=== PATIENT | male | born 1955 | race African-American/Black ===

== ENCOUNTER → 2017-02-16 | Outpatient (CLI) | payer OTHER | LOC: HYPER 07:00 | DX: I87.333 Chronic venous hypertension (idiopathic) with ulcer and inflammation of bilateral lower extremity (principal); L97.821 Non-pressure chronic ulcer of other part of left lower leg limited to breakdown of skin; L97.321 Non-pressure chronic ulcer of left ankle limited to breakdown of skin; L97.811 Non-pressure chronic ulcer of other part of right lower leg limited to breakdown of skin; D50.9 Iron deficiency anemia, unspecified; G89.29 Other chronic pain; I10 Essential (primary) hypertension; F32.9 Major depressive disorder, single episode, unspecified; F17.200 Nicotine dependence, unspecified, uncomplicated; Z72.89 Other problems related to lifestyle ==

== ENCOUNTER → 2017-03-08 | Outpatient (CLI) | payer OTHER | LOC: HYPER 07:09 | DX: I87.333 Chronic venous hypertension (idiopathic) with ulcer and inflammation of bilateral lower extremity (principal); L97.811 Non-pressure chronic ulcer of other part of right lower leg limited to breakdown of skin; L97.821 Non-pressure chronic ulcer of other part of left lower leg limited to breakdown of skin; L97.321 Non-pressure chronic ulcer of left ankle limited to breakdown of skin; F12.90 Cannabis use, unspecified, uncomplicated; F17.200 Nicotine dependence, unspecified, uncomplicated; Z72.89 Other problems related to lifestyle ==

== ENCOUNTER → 2017-03-29 | Outpatient (CLI) | payer OTHER | LOC: HYPER 06:40 | DX: I87.333 Chronic venous hypertension (idiopathic) with ulcer and inflammation of bilateral lower extremity (principal); L97.811 Non-pressure chronic ulcer of other part of right lower leg limited to breakdown of skin; L97.821 Non-pressure chronic ulcer of other part of left lower leg limited to breakdown of skin; D50.9 Iron deficiency anemia, unspecified; G89.29 Other chronic pain; F17.200 Nicotine dependence, unspecified, uncomplicated; Z72.89 Other problems related to lifestyle ==

== ENCOUNTER → 2017-04-19 | Outpatient (CLI) | payer OTHER | LOC: HYPER 06:57 | DX: I87.333 Chronic venous hypertension (idiopathic) with ulcer and inflammation of bilateral lower extremity (principal); L97.811 Non-pressure chronic ulcer of other part of right lower leg limited to breakdown of skin; L97.321 Non-pressure chronic ulcer of left ankle limited to breakdown of skin; F17.200 Nicotine dependence, unspecified, uncomplicated; F12.90 Cannabis use, unspecified, uncomplicated; Z72.89 Other problems related to lifestyle ==

== ENCOUNTER 2017-04-23 10:07 | Inpatient (IN) | payer OTHER ==
[~2017-04-23] VITALS: Ht 188 cm; Wt 95.3 kg
--- NOTE | ~2017-04-23 | O ---
[facility] [place] [place] [address] OPERATIVE REPORT Name: TELLO LUDWIG Room #: 421-P [facility] IN .R.#: [id number] Admission: 04/23/17 Attend Phys: Jayro Santos MD Discharge: 04/29/17 Date of : 51 Report #: [id number] THIS REPORT FOR: //name// CC: [facility] physician/PCP Jayro Teixeira DATE OF SERVICE: 04/26/2017 PREOPERATIVE DIAGNOSIS: Bilateral venous stasis ulcers with necrotic skin. POSTOPERATIVE DIAGNOSIS: Bilateral venous stasis ulcers with necrotic skin. OPERATIVE PROCEDURE: Bilateral Misonix mechanical debridement of lower extremities 20 x 24 cm left lower extremity and 18 x 24 right lower extremity. SURGEON: Bk Bonilla M.D. 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 He now requires an additional dressing change with Misonix mechanical debridement of 2 mm depth of the necrotic granulation tissue. OPERATIVE PROCEDURE: The patient had thorough discussion of procedure, benefits and risks. He gave informed consent to proceed. He was brought to the operating room suite and had satisfactory induction of general endotracheal anesthesia. His feet were placed on a prop and circumferential painting with Betadine from the knee to the ankles was performed. Sterile draping was completed. The Misonix device on the power of 7 was utilized with sterile water for mechanical debridement of all of the left lower extremity and the right lower extremity wounds. The left lower extremity wounds were 20 x 24 cm in greatest dimensions. There was exuberant granulation tissue, which was removed with the mechanical debridement. The right lower extremity also had an area of 18 x 24 cm in greatest dimensions, which was also mechanically debrided with Misonix. After this was completed, Silvadene ointment mixed with 3 mg of morphine was utilized to dress the wounds. Xeroform dressings were applied. Kerlix wraps from the ankle to just below the knee on both lower extremities was performed. Jaime wrap was then placed over the Kerlix. The patient tolerated the [address] [address] OPERATIVE REPORT Name: DIONNA LUDWIGFina Room #: 421-P [facility] IN [facility].#: [id number] Admission: 04/23/17 Attend Phys: Jayro Santos MD Discharge: 04/29/17 Date of : 51 Report #: [id number] procedure well with an estimated blood loss of less than 25 mL. He returned directly to the recovery room in stable and satisfactory condition. By: [id number] Bk Bonilla MD, FACS /nt
--- NOTE | ~2017-04-23 | O ---
[facility] [place] [address] OPERATIVE REPORT Name: TELLO LUDWIG Room #: 421-P [facility] IN M.R.#: [id number] Admission: 04/23/17 Attend Phys: Jayro Santos MD Discharge: Date of : 51 Report #: [id number] THIS REPORT FOR: //name// CC: [facility] physician/PCP Jayro Teixeira DATE OF SERVICE: 04/23/2017 PREOPERATIVE DIAGNOSIS: Bilateral venous stasis ulcerations of the lower extremities with necrotic skin. POSTOPERATIVE DIAGNOSIS: Bilateral venous stasis ulcerations of the lower extremities with necrotic skin. PROCEDURE: Extensive Misonix debridement of bilateral venous stasis ulcerations of the lower extremities with debridement of necrotic skin. Area of debridement, left leg 16 x 20 cm in greatest dimensions and area of debridement, right leg 18 x 24 cm in greatest dimensions. OPERATIVE PROCEDURE: The patient presented to the Emergency Department and the Wound Care Clinic with extensive ulcerations of the lower extremities over the last 2-3 years. They have been poorly taken care of. He now has significant islands of necrotic skin of both lower extremities with significant necrosis and odor changes. This requires debridement in the operating room. The patient had a thorough discussion of the procedure, benefits and risks. He gave informed consent to proceed. He was brought to the operating room suite and had satisfactory induction of general endotracheal anesthesia. The legs were placed on an elevated board for painting with Betadine solution from the ankles to the knees. The site of the left leg extensive area with necrotic skin was 16 x 20 cm in greatest dimensions. The right leg demonstrated an area of devoid of skin and epithelium of approximately 20 x 24 cm in greatest dimensions, all between the ankle and the knees. After draping was completed, an appropriate timeout was then performed. The Misonix debridement device was utilized to mechanically debride all of the areas of the left lower extremity initially. The islands of necrotic skin were debrided and a few pieces were sent for histological evaluation. The debridement area of the left leg was approximately 18 x 24 cm in greatest dimensions. Attention was then turned to the right leg for the islands of necrotic skin, which were excised. The Misonix debridement device again mechanically debrided all of the areas of the granulation tissue devoid of skin. This comprised an area of approximately 20 x 24 cm in greatest dimensions. There was extensive circumferential areas around both extremities devoid of skin. After the debridement device was utilized over all of the necrotic skin areas and the areas devoid of epithelium, the [address] [address] OPERATIVE REPORT Name: TELLO LUDWIG Room #: 421-P [facility] IN M.R.#: [id number] Admission: 04/23/17 Attend Phys: Jayro Santos MD Discharge: Date of : 51 Report #: [id number] granulation tissue was bleeding freely. Cultures had been previously sent from the Emergency Room for the tissue and the open wounds. After cleaning with a lap tape, 3 mg of morphine mixed with 30 grams of Silvadene was applied to each leg individually. Xeroform gauze was then wrapped over the open wounds and the Silvadene with morphine. The right leg required 3 full pieces of Xeroform gauze. The left leg required 2 full pieces of Xeroform gauze and a third was split and also applied to the left leg. Each leg was then wrapped with 2 rolls of Kerlix dressing. The estimated blood loss for the entire procedure was less than 10 mL. The patient tolerated the procedure well and returned to recovery room in stable and satisfactory condition. <ELECTRONICALLY SIGNED> By: Bk Bonilla MD, FACS 04/27/17 1722 1504 1604 Bk Bonilla MD, FACS /nt
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
--- NOTE | ~2017-04-23 | EKG ---
[address] [place] [address] ELECTROCARDIOGRAM REPORT Name: VANITELLO Room #: 170-11 ADM IN M.R.#: [id number] Admission: 04/23/17 Attend Phys: Jayro Santos MD Discharge: Date of : 51 Report #: [id number] THIS REPORT FOR: //name// [facility] ED Test Date: 2017-04-23 Test Time: 12:47:21 Pat Name: TELLO LUDWIG Department: Room: 170 11 Gender: M Veneer Sorter: BIRGIT : 1955 Requested By: Miguel Gould Order Number: [id number] MD: Dalton Gupta Measurements Intervals Loyal Rate: 58 P: 54 NH: 151 QRS: 7 QRSD: 108 T: 36 QT: 460 QTc: 452 Interpretive Statements Sinus rhythm Low voltage, precordial leads Abnormal R-wave progression, early transition No previous ECG available for comparison Electronically Signed On 04-23-2017 13:35:42 CDT by Dalton Gupta [email or web address] <ELECTRONICALLY SIGNED> By: Dalton Gupta MD 04/23/17 1335 1247 1247 Dalton Gupta MD /DOMINGA
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
--- NOTE | ~2017-04-23 | S ---
[facility] [place] [address] SURGICAL PATH RPT PROCEDURE Name: VALERIE LUDWIG Room #: 421-P ADM IN M.R.#: [id number] Admission: 04/23/17 Date of : 51 Discharge: Report #: [id number] Path Case #: [id number] PATHOLOGY REPORT COLLECTION DATE: 04/23/2017 RECEIVED DATE: 04/26/2017 SUBMITTING PHYS: Dr. Bk Bonilla OTHER PHYS: Dr. Jayro Estrada SPECIMEN(S) RECEIVED: A.Left leg necrotic skin B.Right leg necrotic skin * * * * * * * * * * * * FINAL DIAGNOSIS: A. Skin, left leg necrotic skin, debridement: - Gangrenous necrosis along with fibrinoid degeneration, as well as marked acute inflammation, consistent with debridement tissue. - No viable squamous epithelium present. B. Skin, right leg necrotic skin, debridement: - Gangrenous necrosis along with fibrinoid degeneration, as well as marked acute inflammation, consistent with debridement tissue. - No viable squamous epithelium present. (IUV:ely; 04/27/2017) PATHOLOGIST: Jennifer Howell M.D. REPORT ELECTRONICALLY SIGNED BY: Jennifer Howell M.D. DATE/TIME: 04/27/2017 15:57 * * * * * * * * * * * * GROSS PATHOLOGY: A. The specimen is received in formalin, labeled "Valerie Ludwig and left leg necrotic skin", are several fragment of matute-white to black-brown portion of soft tissue measures 1.5 x 0.8 x 0.5 cm entirely submitted in A1. B. The specimen is received in formalin, labeled "Valerie Ludwig and right leg necrotic skin", are several fragments of matute-white to black And brown portion of soft tissue 1.0 x 0.6 x 0.3 cm in aggregate, entirely submitted in B1. (SWS; 04/26/2017) CLINICAL HISTORY: Venous static ulcer [address] [address] SURGICAL PATH RPT PROCEDURE Name: VALERIE LUDWIG Room #: 421-P ADM IN M.R.#: [id number] Admission: 04/23/17 Date of : 51 Discharge: Report #: [id number] Path Case #: [id number] INITIAL CPT CODE(S): A; 19509 B; 54318 Professional services performed by [facility] at [address], [place] [address] Technical services performed by [facility] at [address] [place] [address], [facility] [address] [address]. [facility] [address] [place] [id number] PHONE: [phone] DIRECTOR: Yassine Jones M.D. * * * END OF REPORT * * *
[2017-04-23 10:11] VITALS: BP 108/66
[2017-04-23 11:21] LABS: HEMATOCRIT 26.9 % (42.0-52.0); HEMOGLOBIN 8.5 gm/dL (14.0-18.0); MCH 26.6 pg (26.0-34.0); MCHC 31.7 g/dL (28.0-37.0); MCV 83.8 fL (80.0-100.0); PLATELET COUNT 409 thou/uL (150-400); RBC 3.21 mil/uL (4.50-6.00); RDW 21.3 % (10.5-14.5); WBC 9.5 thou/uL (4.0-11.0)
[2017-04-23 11:29] LABS: MANUAL DIFF YES
[2017-04-23 11:31] LABS: ANION GAP 13 mmol/L (7-16); BUN 22 mg/dL (7-18); CALCIUM 8.6 mg/dL (8.5-10.1); CHLORIDE 109 mmol/L (98-107); CO2 17 mmol/L (21-32); CREATININE 1.7 mg/dL (0.7-1.3); GLUCOSE 105 mg/dL (74-106); POTASSIUM 3.8 mmol/L (3.5-5.1); SODIUM 139 mmol/L (136-145)
[2017-04-23 11:36] LABS: ALBUMIN 2.6 g/dL (3.4-5.0); ALKALINE PHOSPHATASE 53 U/L (46-116); DIRECT BILIRUBIN < 0.1 mg/dL (<0.1-0.3); SGOT 14 U/L (15-37); SGPT 8 U/L (30-65); TOTAL BILIRUBIN 0.7 mg/dL (<0.1-1.0); TOTAL PROTEIN 6.9 g/dL (6.4-8.2)
[2017-04-23 12:58] LABS: ABSOLUTE NEUTROPHILS 7.7 thou/uL (1.4-8.2); TOTAL CELL COUNT 100
[2017-04-23 12:59] LABS: APTT 30.9 Seconds (24.5-32.8)
[2017-04-23 13:00] LABS: ANISOCYTOSIS 2+; OVALOCYTES FEW
[2017-04-23 13:02] LABS: MACROCYTES 1+; MICROCYTES 1+
[2017-04-23 13:07] VITALS: BP 127/64
[2017-04-23 16:30] VITALS: BP 128/66
[2017-04-23 20:03] VITALS: BP 133/71
[2017-04-24 03:00] VITALS: BP 117/63
[2017-04-24 06:25] LABS: HEMATOCRIT 26.4 % (42.0-52.0); HEMOGLOBIN 8.2 gm/dL (14.0-18.0); MCH 26.3 pg (26.0-34.0); MCHC 31.1 g/dL (28.0-37.0); MCV 84.5 fL (80.0-100.0); RBC 3.12 mil/uL (4.50-6.00); RDW 21.6 % (10.5-14.5)
[2017-04-24 06:38] LABS: CALCIUM 8.4 mg/dL (8.5-10.1); CREATININE 1.5 mg/dL (0.7-1.3)
[2017-04-24 07:42] VITALS: BP 107/68
[2017-04-24 17:08] VITALS: BP 118/74
[2017-04-24 19:47] VITALS: BP 129/67
[2017-04-25 03:44] VITALS: BP 119/75
[2017-04-25 03:55] LABS: HEMATOCRIT 26.3 % (42.0-52.0); HEMOGLOBIN 8.4 gm/dL (14.0-18.0); MCH 26.6 pg (26.0-34.0); MCHC 31.9 g/dL (28.0-37.0); MCV 83.4 fL (80.0-100.0); RBC 3.15 mil/uL (4.50-6.00); RDW 21.2 % (10.5-14.5); WBC 7.3 thou/uL (4.0-11.0)
[2017-04-25 04:03] LABS: CALCIUM 8.8 mg/dL (8.5-10.1); CREATININE 1.2 mg/dL (0.7-1.3)
[2017-04-25 07:37] VITALS: BP 113/70
[2017-04-25 16:13] VITALS: BP 127/73
[2017-04-25 20:00] VITALS: BP 120/66
[2017-04-26] VITALS (7 sets, daily range): BP systolic 95–150; BP diastolic 59–83
[2017-04-26] MEDS ORDERED: OXYCODONE HCL15 MG PO (00:49)
[2017-04-26] MEDS ORDERED: AMOXICILLIN 50500 MG PO (00:50)
[2017-04-26 09:49] LABS: HEMATOCRIT 26.4 % (42.0-52.0); HEMOGLOBIN 8.3 gm/dL (14.0-18.0); MCH 26.6 pg (26.0-34.0); MCHC 31.4 g/dL (28.0-37.0); MCV 84.5 fL (80.0-100.0); RBC 3.12 mil/uL (4.50-6.00); RDW 20.4 % (10.5-14.5); WBC 8.7 thou/uL (4.0-11.0)
[2017-04-26 10:00] LABS: CALCIUM 8.7 mg/dL (8.5-10.1); CREATININE 1.2 mg/dL (0.7-1.3); POTASSIUM 4.3 mmol/L (3.5-5.1)
[2017-04-27 03:34] VITALS: BP 104/61
[2017-04-27 06:24] LABS: HEMATOCRIT 27.5 % (42.0-52.0); HEMOGLOBIN 8.6 gm/dL (14.0-18.0); MCH 26.4 pg (26.0-34.0); MCHC 31.3 g/dL (28.0-37.0); MCV 84.4 fL (80.0-100.0); RBC 3.25 mil/uL (4.50-6.00); RDW 19.9 % (10.5-14.5); WBC 5.6 thou/uL (4.0-11.0)
[2017-04-27 06:59] LABS: CALCIUM 8.7 mg/dL (8.5-10.1); CREATININE 1.3 mg/dL (0.7-1.3); POTASSIUM 4.3 mmol/L (3.5-5.1)
[2017-04-27 09:00] VITALS: BP 111/64
[2017-04-27 15:09] VITALS: BP 124/76
[2017-04-27 20:51] VITALS: BP 132/68
[2017-04-28 03:44] VITALS: BP 115/61
[2017-04-28 07:44] VITALS: BP 100/61
[2017-04-28 16:27] VITALS: BP 105/65
[2017-04-28 19:14] VITALS: BP 118/75
[2017-04-29 03:31] VITALS: BP 119/69
[2017-04-29 07:28] VITALS: BP 117/77
[2017-04-29] MEDS ORDERED: PERCOCET 10-321 EACH PO (14:22)
[2017-04-29] MEDS ORDERED: ROCEPHIN 11 GM/1001 IV (14:22)
[2017-04-29 15:10] VITALS: BP 117/70
== END 2017-04-29 18:29 | DRG 264 ==
LOC: ER 10:07 → 4E 12:01 → EROBS 12:01 → 4E 16:40
PROVIDERS: Hospitalist; Nurse Practitioner; Surgery
PROC: 0JBN0ZZ Excision of Right Lower Leg Subcutaneous Tissue and Fascia, Open Approach (ICD-10-PCS; principal; 2017-04-23)
PROC: 0JBP0ZZ Excision of Left Lower Leg Subcutaneous Tissue and Fascia, Open Approach (ICD-10-PCS; principal; 2017-04-23)
PROC: 0JBN0ZZ Excision of Right Lower Leg Subcutaneous Tissue and Fascia, Open Approach (ICD-10-PCS; 2017-04-26)
PROC: 0JBP0ZZ Excision of Left Lower Leg Subcutaneous Tissue and Fascia, Open Approach (ICD-10-PCS; 2017-04-26)
DX: I83.009 Varicose veins of unspecified lower extremity with ulcer of unspecified site (principal); E43 Unspecified severe protein-calorie malnutrition; L03.116 Cellulitis of left lower limb; L03.115 Cellulitis of right lower limb; N17.9 Acute kidney failure, unspecified; S81.802A Unspecified open wound, left lower leg, initial encounter; S81.801A Unspecified open wound, right lower leg, initial encounter; X58.XXXA Exposure to other specified factors, initial encounter; Y93.89 Activity, other specified; Y92.89 Other specified places as the place of occurrence of the external cause; Y99.8 Other external cause status; Z68.27 Body mass index [BMI] 27.0-27.9, adult; I87.2 Venous insufficiency (chronic) (peripheral)
CPT/HCPCS: 10084; 50010; 50101; 50386; 53353; 53354; 57092; 62110; 62900; 70005

== ENCOUNTER → 2017-07-20 | Outpatient (CLI) | payer OTHER ==
[~2017-07-20] MED LIST: AMOXICILLIN 50500 MG PO; COLACE100 MG PO; FLUSH IV; GABAPENTIN 100100 MG PO; GENTAMICIN 0.1%15 G2 TOP; LINEZOLID600 MG PO; MAXIPIME 1 GM/D51 G1 IV; MIRALAX17 GM PO; MORPHINE 44 MG/1 ML IV PUSH; OXYCODONE HCL10 MG PO; OXYCODONE HCL15 MG PO; OXYCONTIN15 MG PO; PERCOCET 10-321 EACH PO; ROCEPHIN 11 GM/1001 IV; SANTYL OINTMENT30 G1 TP; VANCO1GM IV
== END ==
LOC: HYPER 06:37
DX: I87.333 Chronic venous hypertension (idiopathic) with ulcer and inflammation of bilateral lower extremity (principal); L97.822 Non-pressure chronic ulcer of other part of left lower leg with fat layer exposed; L97.812 Non-pressure chronic ulcer of other part of right lower leg with fat layer exposed; L97.321 Non-pressure chronic ulcer of left ankle limited to breakdown of skin; G89.29 Other chronic pain; F17.200 Nicotine dependence, unspecified, uncomplicated; F32.9 Major depressive disorder, single episode, unspecified; Z72.89 Other problems related to lifestyle

== ENCOUNTER 2017-07-24 10:56 | Inpatient (IN) | payer OTHER ==
[~2017-07-24] VITALS: Ht 188 cm; Wt 93.0 kg
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
--- NOTE | ~2017-07-24 | EKG ---
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 : 1955 Requested By: Adraina Caban Order Number: [id number] MD: Dalton Gupta Measurements Intervals [place] Rate: 42 P: 11 MT: 158 QRS: -3 QRSD: 110 T: 5 QT: 494 QTc: 413 Interpretive Statements Sinus bradycardia Atrial premature complex Borderline low voltage, extremity leads Abnormal R-wave progression, early transition Compared to ECG 04/23/2017 12:47:21 Atrial premature complex(es) now present Sinus rhythm no longer present Electronically Signed On 07-26-2017 15:42:17 [employer] by Dalton Gupta [email or web address] <ELECTRONICALLY SIGNED> By: Dalton Gupta MD 07/26/17 1542 0832 0832 Dalton Gupta MD /EPI
[2017-07-24 10:56] VITALS: BP 107/77
[~2017-07-24 10:56] MED LIST changes: -COLACE100 MG PO; -FLUSH IV; -GABAPENTIN 100100 MG PO; -GENTAMICIN 0.1%15 G2 TOP; -LINEZOLID600 MG PO; -MAXIPIME 1 GM/D51 G1 IV; -MIRALAX17 GM PO; -MORPHINE 44 MG/1 ML IV PUSH; -OXYCODONE HCL10 MG PO; -OXYCONTIN15 MG PO; -SANTYL OINTMENT30 G1 TP; -VANCO1GM IV
[2017-07-24 11:27] LABS: HEMATOCRIT 32.4 % (42.0-52.0); HEMOGLOBIN 10.2 gm/dL (14.0-18.0); MCH 25.4 pg (26.0-34.0); MCHC 31.5 g/dL (28.0-37.0); MCV 80.6 fL (80.0-100.0); RBC 4.02 mil/uL (4.50-6.00); WBC 5.5 thou/uL (4.0-11.0)
[2017-07-24 11:36] LABS: CALCIUM 9.1 mg/dL (8.5-10.1); CREATININE 1.9 mg/dL (0.7-1.3); POTASSIUM 3.6 mmol/L (3.5-5.1)
[2017-07-24 11:42] LABS: ALBUMIN 2.7 g/dL (3.4-5.0); TOTAL BILIRUBIN 0.3 mg/dL (<0.1-1.0); TOTAL PROTEIN 7.4 g/dL (6.4-8.2)
[2017-07-24 19:16] VITALS: BP 90/46
[2017-07-24 19:35] VITALS: BP 112/55
[2017-07-24 20:17] VITALS: BP 101/63
[2017-07-25 00:15] VITALS: BP 107/58
[2017-07-25 04:55] VITALS: BP 119/57
[2017-07-25 11:02] VITALS: BP 84/49
[2017-07-25 16:20] VITALS: BP 123/61
[2017-07-25 19:32] VITALS: BP 91/53
[2017-07-26 01:41] LABS: HEMATOCRIT 27.8 % (42.0-52.0); HEMOGLOBIN 8.7 gm/dL (14.0-18.0); MCH 25.9 pg (26.0-34.0); MCHC 31.2 g/dL (28.0-37.0); MCV 82.9 fL (80.0-100.0); RBC 3.35 mil/uL (4.50-6.00); RDW 18.4 % (10.5-14.5)
[2017-07-26 01:53] LABS: CALCIUM 7.8 mg/dL (8.5-10.1); CREATININE 1.3 mg/dL (0.7-1.3); MAGNESIUM 1.6 mg/dL (1.8-2.4); POTASSIUM 3.9 mmol/L (3.5-5.1)
[2017-07-26 04:10] VITALS: BP 88/50
[2017-07-26 08:19] VITALS: BP 100/60
[2017-07-26 12:13] VITALS: BP 108/67
[2017-07-26 17:13] VITALS: BP 102/58
[2017-07-26 20:41] VITALS: BP 99/62
[2017-07-27 03:52] VITALS: BP 96/47
[2017-07-27 09:13] VITALS: BP 105/49
[2017-07-27 10:39] LABS: HEMATOCRIT 26.2 % (42.0-52.0); HEMOGLOBIN 8.2 gm/dL (14.0-18.0); MCH 25.7 pg (26.0-34.0); MCHC 31.5 g/dL (28.0-37.0); MCV 81.5 fL (80.0-100.0); RBC 3.21 mil/uL (4.50-6.00); RDW 17.7 % (10.5-14.5); WBC 6.2 thou/uL (4.0-11.0)
[2017-07-27 10:47] LABS: CALCIUM 7.9 mg/dL (8.5-10.1); CREATININE 1.1 mg/dL (0.7-1.3); MAGNESIUM 1.9 mg/dL (1.8-2.4); POTASSIUM 3.6 mmol/L (3.5-5.1)
[2017-07-27 20:00] VITALS: BP 110/55
[2017-07-28 04:00] VITALS: BP 95/53
[2017-07-28 04:53] LABS: HEMATOCRIT 24.2 % (42.0-52.0); HEMOGLOBIN 7.7 gm/dL (14.0-18.0); MCH 26.1 pg (26.0-34.0); MCHC 31.9 g/dL (28.0-37.0); MCV 81.8 fL (80.0-100.0); RBC 2.96 mil/uL (4.50-6.00); RDW 18.2 % (10.5-14.5); WBC 5.6 thou/uL (4.0-11.0)
[2017-07-28 04:54] LABS: CREATININE 1.2 mg/dL (0.7-1.3); MAGNESIUM 1.8 mg/dL (1.8-2.4); POTASSIUM 3.8 mmol/L (3.5-5.1)
[2017-07-28 07:33] VITALS: BP 102/54
[2017-07-28 15:43] VITALS: BP 110/59
[2017-07-28 20:00] VITALS: BP 132/64
[2017-07-29 03:50] VITALS: BP 131/63
[2017-07-29 09:40] VITALS: BP 117/57
[2017-07-29 16:01] LABS: HEMATOCRIT 25.1 % (42.0-52.0); HEMOGLOBIN 7.9 gm/dL (14.0-18.0); MCH 25.3 pg (26.0-34.0); MCHC 31.5 g/dL (28.0-37.0); MCV 80.4 fL (80.0-100.0); RBC 3.13 mil/uL (4.50-6.00); WBC 6.5 thou/uL (4.0-11.0)
[2017-07-29 16:14] LABS: CALCIUM 8.1 mg/dL (8.5-10.1); CREATININE 1.1 mg/dL (0.7-1.3); MAGNESIUM 1.6 mg/dL (1.8-2.4); POTASSIUM 3.9 mmol/L (3.5-5.1)
[2017-07-29 19:18] VITALS: BP 108/62
[2017-07-30 04:15] VITALS: BP 108/57
[2017-07-30 08:41] VITALS: BP 128/70
[2017-07-30 13:49] LABS: HEMATOCRIT 27.3 % (42.0-52.0); HEMOGLOBIN 8.6 gm/dL (14.0-18.0); MCH 25.3 pg (26.0-34.0); MCHC 31.6 g/dL (28.0-37.0); MCV 80.1 fL (80.0-100.0); RBC 3.4 mil/uL (4.50-6.00); RDW 17.6 % (10.5-14.5); WBC 7.3 thou/uL (4.0-11.0)
[2017-07-30 14:02] LABS: CALCIUM 8.2 mg/dL (8.5-10.1); CREATININE 1.1 mg/dL (0.7-1.3); MAGNESIUM 1.7 mg/dL (1.8-2.4)
[2017-07-30 16:10] VITALS: BP 114/53
[2017-07-30 20:00] VITALS: BP 112/68
[2017-07-31 04:25] VITALS: BP 113/58
[2017-07-31 08:00] VITALS: BP 115/73
[2017-07-31 16:24] VITALS: BP 111/55
[2017-07-31 19:30] VITALS: BP 120/65
[2017-08-01 03:33] VITALS: BP 106/56
[2017-08-01 08:18] VITALS: BP 121/56
[2017-08-01 15:51] VITALS: BP 122/52
[2017-08-01 19:24] VITALS: BP 107/52
[2017-08-02 03:42] VITALS: BP 95/62
[2017-08-02 08:00] VITALS: BP 103/66
[2017-08-02] MEDS ORDERED: LINEZOLID600 MG PO (10:15)
[2017-08-02] MEDS ORDERED: OXYCONTIN15 MG PO (10:15)
[2017-08-02 10:24] VITALS: BP 103/66
[2017-10-25] MEDS ORDERED: GENTAMICIN 0.1%15 G2 TOP (14:04)
[2017-10-28] MEDS ORDERED: MORPHINE 44 MG/1 ML IV PUSH (14:00)
[2017-10-28] MEDS ORDERED: COLACE100 MG PO (14:00)
[2017-10-28] MEDS ORDERED: FLUSH IV (14:00)
[2017-10-28] MEDS ORDERED: VANCO1GM IV (14:00)
[2017-10-28] MEDS ORDERED: OXYCONTIN15 MG PO (14:00)
[2017-10-28] MEDS ORDERED: MAXIPIME 1 GM/D51 G1 IV (14:00)
[2017-10-28] MEDS ORDERED: MIRALAX17 GM PO (14:00)
[2018-02-26] MEDS ORDERED: GABAPENTIN 100100 MG PO (21:15)
[2018-02-26] MEDS ORDERED: OXYCODONE HCL10 MG PO (21:16)
[2018-02-26] MEDS ORDERED: SANTYL OINTMENT30 G1 TP (21:17)
== END 2017-08-02 18:02 | disposition home health service (06) | DRG 579 ==
LOC: ER 10:56 → EROBS 16:36 → 4N 19:37
PROVIDERS: Emergency Medicine; Internal Medicine
PROC: 0KBS0ZZ Excision of Right Lower Leg Muscle, Open Approach (ICD-10-PCS; principal; 2017-07-24)
PROC: 0KBT0ZZ Excision of Left Lower Leg Muscle, Open Approach (ICD-10-PCS; principal; 2017-07-24)
DX: L03.116 Cellulitis of left lower limb (principal); E43 Unspecified severe protein-calorie malnutrition; N17.9 Acute kidney failure, unspecified; K61.1 Rectal abscess; L03.115 Cellulitis of right lower limb; I87.2 Venous insufficiency (chronic) (peripheral); D63.8 Anemia in other chronic diseases classified elsewhere; A49.02 Methicillin resistant Staphylococcus aureus infection, unspecified site; E87.6 Hypokalemia; E83.42 Hypomagnesemia; E11.51 Type 2 diabetes mellitus with diabetic peripheral angiopathy without gangrene; I77.1 Stricture of artery; G89.29 Other chronic pain; Z87.891 Personal history of nicotine dependence; Z68.26 Body mass index [BMI] 26.0-26.9, adult; Z79.899 Other long term (current) drug therapy
CPT/HCPCS: 10091; 50010; 50101; 50386; 53353; 53354; 54109; 56525; 62110; 62900; 70005

== ENCOUNTER → 2017-08-31 | Outpatient (CLI) | payer OTHER ==
[~2017-08-31] MED LIST changes: +COLACE100 MG PO; +FLUSH IV; +GABAPENTIN 100100 MG PO; +GENTAMICIN 0.1%15 G2 TOP; +LINEZOLID600 MG PO; +MAXIPIME 1 GM/D51 G1 IV; +MIRALAX17 GM PO; +MORPHINE 44 MG/1 ML IV PUSH; +OXYCODONE HCL10 MG PO; +OXYCONTIN15 MG PO; +SANTYL OINTMENT30 G1 TP; +VANCO1GM IV
== END ==
LOC: HYPER 06:49
DX: I87.333 Chronic venous hypertension (idiopathic) with ulcer and inflammation of bilateral lower extremity (principal); L97.812 Non-pressure chronic ulcer of other part of right lower leg with fat layer exposed; L97.822 Non-pressure chronic ulcer of other part of left lower leg with fat layer exposed; L97.321 Non-pressure chronic ulcer of left ankle limited to breakdown of skin; F17.200 Nicotine dependence, unspecified, uncomplicated; F12.90 Cannabis use, unspecified, uncomplicated; Z72.89 Other problems related to lifestyle

== ENCOUNTER → 2017-09-24 | Outpatient (CLI) | payer OTHER | LOC: HYPER 08:26 | DX: I87.333 Chronic venous hypertension (idiopathic) with ulcer and inflammation of bilateral lower extremity (principal); L97.812 Non-pressure chronic ulcer of other part of right lower leg with fat layer exposed; L97.822 Non-pressure chronic ulcer of other part of left lower leg with fat layer exposed; G89.29 Other chronic pain; F17.200 Nicotine dependence, unspecified, uncomplicated; Z72.89 Other problems related to lifestyle; F12.90 Cannabis use, unspecified, uncomplicated ==

== ENCOUNTER → 2017-10-15 | Outpatient (CLI) | payer OTHER ==
[~2017-10-15] MED LIST changes: -COLACE100 MG PO; -FLUSH IV; -GABAPENTIN 100100 MG PO; -GENTAMICIN 0.1%15 G2 TOP; -MAXIPIME 1 GM/D51 G1 IV; -MIRALAX17 GM PO; -MORPHINE 44 MG/1 ML IV PUSH; -OXYCODONE HCL10 MG PO; -SANTYL OINTMENT30 G1 TP; -VANCO1GM IV
== END ==
LOC: HYPER 07:50
DX: I87.333 Chronic venous hypertension (idiopathic) with ulcer and inflammation of bilateral lower extremity (principal); L97.812 Non-pressure chronic ulcer of other part of right lower leg with fat layer exposed; L97.822 Non-pressure chronic ulcer of other part of left lower leg with fat layer exposed; D50.9 Iron deficiency anemia, unspecified; G89.29 Other chronic pain; F17.200 Nicotine dependence, unspecified, uncomplicated; F12.90 Cannabis use, unspecified, uncomplicated

== ENCOUNTER → 2017-12-02 | Outpatient (CLI) | payer OTHER ==
[~2017-12-02] MED LIST changes: +COLACE100 MG PO; +FLUSH IV; +GENTAMICIN 0.1%15 G2 TOP; +MAXIPIME 1 GM/D51 G1 IV; +MIRALAX17 GM PO; +MORPHINE 44 MG/1 ML IV PUSH; +VANCO1GM IV
== END ==
LOC: HYPER 11-05 08:05
DX: I87.333 Chronic venous hypertension (idiopathic) with ulcer and inflammation of bilateral lower extremity (principal); L97.812 Non-pressure chronic ulcer of other part of right lower leg with fat layer exposed; L97.822 Non-pressure chronic ulcer of other part of left lower leg with fat layer exposed; D50.9 Iron deficiency anemia, unspecified; G89.29 Other chronic pain; F17.200 Nicotine dependence, unspecified, uncomplicated

== ENCOUNTER → 2017-12-30 | Outpatient (CLI) | payer OTHER | LOC: HYPER 07:02 | DX: I87.333 Chronic venous hypertension (idiopathic) with ulcer and inflammation of bilateral lower extremity (principal); L97.822 Non-pressure chronic ulcer of other part of left lower leg with fat layer exposed; L97.812 Non-pressure chronic ulcer of other part of right lower leg with fat layer exposed; G89.29 Other chronic pain; D50.9 Iron deficiency anemia, unspecified; F17.200 Nicotine dependence, unspecified, uncomplicated ==

== ENCOUNTER → 2018-01-27 | Outpatient (CLI) | payer OTHER | LOC: HYPER 06:49 | DX: I87.333 Chronic venous hypertension (idiopathic) with ulcer and inflammation of bilateral lower extremity (principal); L97.822 Non-pressure chronic ulcer of other part of left lower leg with fat layer exposed; L97.812 Non-pressure chronic ulcer of other part of right lower leg with fat layer exposed; D50.9 Iron deficiency anemia, unspecified; G89.29 Other chronic pain; F12.90 Cannabis use, unspecified, uncomplicated; F17.200 Nicotine dependence, unspecified, uncomplicated ==

== ENCOUNTER → 2018-03-04 | Outpatient (CLI) | payer OTHER ==
[~2018-03-04] VITALS: Ht 188 cm; Wt 90.7 kg
[~2018-03-04] MED LIST changes: +GABAPENTIN 100100 MG PO; +OXYCODONE HCL10 MG PO; +SANTYL OINTMENT30 G1 TP
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
[2018-03-04 08:48] VITALS: BP 126/77
== END ==
LOC: PAIN 02-25 09:27
DX: L97.929 Non-pressure chronic ulcer of unspecified part of left lower leg with unspecified severity (principal); L97.919 Non-pressure chronic ulcer of unspecified part of right lower leg with unspecified severity; M79.672 Pain in left foot; G89.29 Other chronic pain; I73.9 Peripheral vascular disease, unspecified; I87.2 Venous insufficiency (chronic) (peripheral); Z87.891 Personal history of nicotine dependence